=== PATIENT | female | born 1975 | race Caucasian/White ===

== ENCOUNTER 2025-06-15 19:18 | Emergency (ER) | payer BC ==
[2025-06-15] MEDS ORDERED: Naloxone 0.4 MG/ML SDV IVPUSH PRN ×2 (20:07→21:23)
[2025-06-15] MEDS: Ketorolac 60 MG/2 ML SDV IM ONE (21:55)
[2025-06-15 22:45] VITALS: BP 112/60; PULSE 65
[2025-06-15] MEDS: Ketorolac 60 MG/2 ML SDV ONE (23:01)
== END 2025-06-15 22:42 | disposition home or self-care (01) ==
LOC: JD.ED 19:18
DX: S43.014A Anterior dislocation of right humerus, initial encounter (principal); E66.9 Obesity, unspecified; Z88.2 Allergy status to sulfonamides; Z79.899 Other long term (current) drug therapy; Z79.01 Long term (current) use of anticoagulants; W21.06XA Struck by volleyball, initial encounter
CPT/HCPCS: 23650; 73030; 96372; 99283; J1171; J1885